=== PATIENT | male | born 1995 | race African-American/Black ===

== ENCOUNTER 2021-03-13 12:34 | Emergency (ER) | payer MEDICAID ==
[~2021-03-13] VITALS: Ht 180.3 cm; Wt 64.0 kg
[2021-03-13] MEDS ORDERED: SODIUM CHLORIDE 0.9% 1,000 ML IV ONE (17:00)
[2021-03-13] MEDS ORDERED: LORAZEPAM 2MG/ML CPJ IV ONE (17:15)
[2021-03-13] MEDS ORDERED: HALOPERIDOL LACTATE 5MG/ML VIAL IM ONE (18:45)
[2021-03-13 19:16] LABS: CLARITY URINE CLEAR (CLEAR); COLOR URINE YELLOW (YELLOW); KETONES URINE TRACE (NEGATIVE); LEUKOCYTE ESTERASE URINE NEGATIVE (NEGATIVE); NITRITE URINE NEGATIVE (NEGATIVE); OCCULT BLOOD URINE NEGATIVE (NEGATIVE); PROTEIN URINE NEGATIVE (NEGATIVE); SPECIFIC GRAVITY URINE 1.015 (1.005-1.030); UROBILINOGEN URINE 0.2 E.U./dL (0.2-1.0)
[2021-03-13 19:41] LABS: BASOPHILS % 0.7 % (0.0-2.0); EOSINOPHILS % 2.4 % (0.0-5.0); HEMATOCRIT. 42.5 % (42.0-52.0); HEMOGLOBIN. 14.1 g/dL (14.0-18.0); LYMPHOCYTES % 32.2 % (20.0-50.0); MEAN CORPUSCULAR VOLUME 93.5 fL (80.0-94.0); MEAN PLATELET VOLUME 7.6 fl (7.4-10.4); MONOCYTES % 6.8 % (2.0-8.0); NEUTROPHILS % 57.9 % (40.0-76.0); PLATELET 160 x1000/uL (130-400); RED BLOOD CELL COUNT 4.55 mill/uL (4.7-6.1); RED CELL DISTRIBUTION WIDTH 14.2 % (11.6-14.6)
[2021-03-13 19:47] LABS: *AMPHETAMINES SCREEN URINE PRESUMTIVE POSITIVE (NEGATIVE); *BARBITURATES SCREEN URINE NEGATIVE (NEGATIVE); *COCAINE SCREEN URINE NEGATIVE (NEGATIVE); METHADONE URINE SCREEN NEGATIVE (NEGATIVE); OPIATES URINE SCREEN NEGATIVE (NEGATIVE)
[2021-03-13 19:48] LABS: CHLORIDE 110 mEq/L (98-107)
[2021-03-13 19:48] LABS: CANNABINOID URINE SCREEN PRESUMTIVE POSITIVE (NEGATIVE); PHENCYCLIDINE URINE SCREEN PRESUMTIVE POSITIVE (NEGATIVE)
[2021-03-13 19:49] LABS: *BENZODIAZEPINES SCREEN URINE PRESUMTIVE POSITIVE (NEGATIVE)
[2021-03-13 19:52] LABS: ETHANOL BLOOD < 10 mg/dL
[2021-03-14] MEDS ORDERED: NALO4SPR BOTHNSTRLS ×2 (01:57→08:48)
[2021-03-14 02:17] VITALS: BP 115/70
== END 2021-03-14 02:17 | disposition home or self-care (01) ==
LOC: ER 12:34 → EDBD 12:34 → ER 03-14 02:17
DX: T40.991A Poisoning by other psychodysleptics [hallucinogens], accidental (unintentional), initial encounter (principal); T43.621A Poisoning by amphetamines, accidental (unintentional), initial encounter; G92 Toxic encephalopathy; F15.188 Other stimulant abuse with other stimulant-induced disorder; F16.188 Hallucinogen abuse with other hallucinogen-induced disorder; R00.0 Tachycardia, unspecified; F91.8 Other conduct disorders; Y92.512 Supermarket, store or market as the place of occurrence of the external cause; Z78.1 Physical restraint status
CPT/HCPCS: 36415; 80053; 80305; 80320; 81003; 85025; 93005; 96361; 96372; 96374; 99285; J1630; J2060; J7030; Z7610; G0480

== ENCOUNTER 2021-03-14 06:51 | Emergency (ER) | payer MEDICAID ==
[~2021-03-14] VITALS: Ht 170.2 cm; Wt 64.0 kg
[~2021-03-14 06:51] MED LIST: NALO4SPR BOTHNSTRLS
[2021-03-14] MEDS ORDERED: NALO4SPR BOTHNSTRLS (08:48)
[2021-03-14 09:03] VITALS: BP 145/75
== END 2021-03-14 09:04 | disposition home or self-care (01) ==
LOC: ER 06:51
DX: T40.2X1A Poisoning by other opioids, accidental (unintentional), initial encounter (principal); F11.188 Opioid abuse with other opioid-induced disorder; R03.0 Elevated blood-pressure reading, without diagnosis of hypertension; Y92.89 Other specified places as the place of occurrence of the external cause
CPT/HCPCS: 99283

== ENCOUNTER 2021-04-13 15:32 | Emergency (ER) | payer MEDICAID ==
[~2021-04-13] VITALS: Ht 172.7 cm; Wt 61.4 kg
[2021-04-13 16:00] VITALS: BP 129/82
== END 2021-04-13 17:02 | disposition left against medical advice (07) ==
LOC: ER 15:32
DX: Z53.21 Procedure and treatment not carried out due to patient leaving prior to being seen by health care provider (principal)